=== PATIENT | female | born 1950 | race Caucasian/White ===

== ENCOUNTER → 2016-11-10 | Outpatient (CLI) | payer MEDICARE ==
--- NOTE | 2016-11-10 15:07 | MAMMOGRAPHY REPORT ---
UNILATERAL RIGHT DIGITAL DIAGNOSTIC MAMMOGRAM TOMOSYNTHESIS WITH CAD: 11/10/2016 CLINICAL HISTORY: Six-month follow-up of right breast asymmetry. TECHNIQUE: Breast tomosynthesis in addition to standard 2D mammography was performed. Current study was also evaluated with a Computer Aided Detection (CAD) system. Right CC and MLO 2-D and tomosynt hesis images were obtained. COMPARISON: Comparison is made to exams dated: 05/30/2016 mammogram, 05/30/2016 ultrasound, 05/13/20 16 mammogram, 04/30/2015 mammogram, 04/21/2014 mammogram, and 02/29/2012 mammogram - [facility]. BREAST COMPOSITION: The tissue of the right breast is heterogeneously dense, which may obscure smal l masses. FINDINGS: The previously described asymmetry seen within the right superior posterior breast on the MLO view is less prominent on the current exam, with appearance of this region similar to multiple p rior exams. The asymmetry is benign and compatible with normal overlapping fibroglandular tissue. There are no suspicious masses, calcifications, or areas of architectural distortion noted. IMPRESSION: ACR BI-RADS CATEGORY 2: BENIGN The right breast asymmetry is less prominent on the prior exam, and is benign and compatible with no rmal fibroglandular tissue. There is no mammographic evidence of malignancy. Return to annual mammo gram screening schedule is recommended, due May 2017. The patient has been verbally notified of the results. Approximately 10% of breast cancers are not detected with mammography. A negative mammographic repor t should not delay biopsy if a clinically suggestive mass is present. Kathy Barry M.D. ah/:11/10/2016 11:49:39 Mold Capper Helper: Amanda Amezquita, [facility] letter sent: Normal 1/2 BI-RADS Code: ACR BI-RADS Category 2: Benign
== END | disposition home or self-care (01) ==
LOC: C.MAMM 11:20
PROVIDERS: ATTEND Obstetrics & Gynecology
DX: Z01.419 Encounter for gynecological examination (general) (routine) without abnormal findings (principal); Z09 Encounter for follow-up examination after completed treatment for conditions other than malignant neoplasm; N64.89 Other specified disorders of breast; N95.2 Postmenopausal atrophic vaginitis

== ENCOUNTER → 2016-11-10 | Outpatient (CLI) | payer MEDICARE | END | disposition home or self-care (01) | LOC: C.PAPS 16:26 | PROVIDERS: ATTEND Obstetrics & Gynecology | DX: Z01.419 Encounter for gynecological examination (general) (routine) without abnormal findings (principal); N95.2 Postmenopausal atrophic vaginitis ==

== ENCOUNTER → 2017-06-16 | Outpatient (CLI) | payer OTHER, MEDICARE ==
--- NOTE | 2017-06-19 15:02 | MAMMOGRAPHY REPORT ---
BILATERAL DIGITAL SCREENING MAMMOGRAM TOMOSYNTHESIS WITH CAD: 06/16/2017 CLINICAL HISTORY: Routine screening. Patient has no complaints. TECHNIQUE: Breast tomosynthesis in addition to standard 2D mammography was performed. Current study was also evaluated with a Computer Aided Detection (CAD) system. COMPARISON: Comparison is made to exams dated: 11/10/2016 mammogram, 05/30/2016 mammogram, 05/30/2016 ultrasound, 05/13/2016 mammogram, 04/30/2015 mammogram, and 04/21/2014 mammogram - [facility]. BREAST COMPOSITION: The tissue of both breasts is heterogeneously dense, which may obscure small mas ses. FINDINGS: No suspicious masses, calcifications, or areas of architectural distortion are noted in ei ther breast. There has been no significant interval change compared to prior exams. Asymmetry in the right superior posterior breast overlying the pectoralis muscle has the appearance of normal fibrogl andular tissue on the tomosynthesis images. IMPRESSION: ACR BI-RADS CATEGORY 2: BENIGN There is no mammographic evidence of malignancy. A 1 year screening mammogram is recommended. The pa tient will receive written notification of the results. Approximately 10% of breast cancers are not detected with mammography. A negative mammographic report should not delay biopsy if a clinically suggestive mass is present. Kathy Barry M.D. ah/:06/16/2017 16:03:49 Block Breaker: Amanda ARTHUR(R)(M), [facility] letter sent: Normal 1/2 BI-RADS Code: ACR BI-RADS Category 2: Benign
== END | disposition home or self-care (01) ==
LOC: C.MAMM 15:21
PROVIDERS: ATTEND Obstetrics & Gynecology
DX: Z12.31 Encounter for screening mammogram for malignant neoplasm of breast (principal)